=== PATIENT | male | born 1985 | race Caucasian/White ===

== ENCOUNTER 2018-02-11 19:56 | Emergency (ER) | payer SELFPAY ==
[~2018-02-11] VITALS: Ht 177.8 cm; Wt 72.2 kg
[2018-02-11 21:53] VITALS: BP 131/81
[2018-02-11 23:17] LABS: CLARITY URINE TURBID (CLEAR); COLOR URINE YELLOW (YELLOW); KETONES URINE TRACE (NEGATIVE); LEUKOCYTE ESTERASE URINE 3+ (NEGATIVE); NITRITE URINE NEGATIVE (NEGATIVE); OCCULT BLOOD URINE 2+ (NEGATIVE); PH URINE 6.5 (4.5-8.0); PROTEIN URINE 2+ (NEGATIVE); SPECIFIC GRAVITY URINE 1.023 (1.005-1.030); UROBILINOGEN URINE 0.2 E.U./dL (0.2-1.0)
== END 2018-02-12 07:00 | disposition left against medical advice (07) ==
LOC: ER 19:56
DX: N39.0 Urinary tract infection, site not specified (principal)
CPT/HCPCS: 87077; 87186; 99283